=== PATIENT | female | born 1950 | race Caucasian/White ===

== ENCOUNTER 2025-05-11 17:07 | Inpatient (IN) | payer OTHER, MEDICAID ==
[~2025-05-11] VITALS: Ht 165.1 cm; Wt 136.3 kg
[~2025-05-11 17:07] MED LIST: AMLO1TAB22 PO; ASPI325T6 PO; BACL10TA PO; CHOL20007 PO; LANS15CA37 PO; LISI40TA16 PO
--- NOTE | 2025-05-11 17:20 | ED.PDOC ---
HPI (NEURO) HPI Comments 74 y/o F, BIBA, with PMHx of HTN, DM, CHF, COPD, HLD, and CKD presents to the ED for CC of s/p syncopal episode. EMS reports, patient is coming from home where she suffered a syncopal episode while using the restroom. Patient relays, she went to use the restroom when she began to feel weak; then woke up between the toilet and bathtub covered in vomit. Upon arrival to scene, patient was found to be hypotensive with a systolic blood pressure in the 60's. In route, to the ED patient was given 500mL IVF and systolic improved in the 90's. Patient denies oral trauma, urinary incontinence, head injury, or cervical injury. No other symptoms or modifying factors present at this time. Time Seen by MD: 17:15 Primary Care Provider: NASIR Melvin Notes: Nurses Notes, Advertising Sales Assistant Notes, Medications, Allergies Information Source: Patient, Emergency Med Personnel Mode of Arrival: EMS Severity: Moderate Headache Severity: None Timing: Minutes Duration: Since onset Prehospital treatment: IVF Onset: At rest Circumstances: Spontaneous Symptoms: Syncope Before: Normal During: LOC After: Normal Mentation History of: DM Modifying factors: Nothing Associated Signs and Symptoms: Vomiting Past Medical History PAST MEDICAL HISTORY: Asthma, CHF, CKF, COPD, DM, HTN Surgical History: Tubal Ligation Surgical History (Other): CATARACTS COUNTER HELPER History: No Pertinent COUNTER HELPER History Family History Family History: Unknown Social History Smoker: Non-Smoker Alcohol: Denies ETOH Use Drugs: Denies Drug Use Lives In: Home Constitutional: denies: chills, diaphoresis, fatigue, fever, malaise, sweats, weakness, others EENTM: denies: blurred vision, double vision, ear bleeding, ear discharge, ear drainage, ear pain, ear ringing, eye pain, eye redness, hearing loss, mouth pain, mouth swelling, nasal discharge, nose bleeding, nose congestion, nose pain, photophobia, tearing, throat pain, throat swelling, voice changes, others Respiratory: denies: cough, hemoptysis, orthopnea, SOB at rest, shortness of breath, SOB with excertion, stridor, wheezing, others Cardiovascular: denies: chest pain, dizzy spells, diaphoresis, Dyspnea on exertion, edema, irregular heart beat, left arm pain, lightheadedness, palpitations, PND, syncope, others Gastrointestinal: reports: vomiting; denies: abdomen distended, abdominal pain, blood streaked bowels, constipated, diarrhea, dysphagia, difficulty swallowing, hematemesis, melena, nausea, poor appetite, poor fluid intake, rectal bleeding, rectal pain, others Genitourinary: denies: abnormal vagina bleeding, burning, dyspareunia, dysuria, flank pain, frequency, hematuria, incontinence, pain, , vagina discharge, urgency, others Neurological: reports: fainting; denies: dizziness, headache, left sided numbness, left sided weakness, numbness, paresthesia, pre-existing deficit, right sided numbness, right sided weakness, seizure, speech problems, tingling, tremors, weakness, others Musculoskeletal: denies: back pain, gout, joint pain, joint swelling, muscle pain, muscle stiffness, neck pain, others Integumetry: denies: bruises, change in color, change in hair/nails, dryness, laceration, lesions, lumps, rash, wounds, others Allergic/Immunocompromised: denies: Difficulty Healing, Frequent Infections, Hives, Itching, others Hematologic/Lymphatic: denies: anemia, blood clots, easy bleeding, easy bruising, swollen glands, others Endocrine: denies: excessive hunger, excessive sweating, excessive thirst, excessive urination, flushing, intolerance to cold, intolerance to heat, unexplained weight gain, unexplained weight loss, others Psychiatric: denies: anxiety, bipolar disorder, depression, hopeless, panic disorder, schizophrenia, sleepless, suicidal, others All Other Systems: Reviewed and Negative Physical Exam General Appearance: Moderate Distress, Obese HEENT: Normal ENT Inspection, Pharynx Normal, TMs Normal Neck: Full Range of Motion, Non-Tender, Normal, Normal Inspection Respiratory: Chest Non-Tender, Lungs Clear, No Accessory Muscle Use, No Respiratory Distress, Normal Breath Sounds Cardiovascular: No Edema, No JVD, No Murmur, No Gallop, Normal Peripheral Pulses, Regular Rate/Rhythm Breast Exam: Deferred Gastrointestinal: No Organomegaly, Non Tender, No Pulsatile Mass, Normal Bowel Sounds, Soft Genitalia: Deferred Pelvic: Deferred Rectal: Deferred Extremities: No calf tenderness, Normal capillary refill, Normal inspection, Normal range of motion, Non-tender, No pedal edema Musculoskeletal : Apperance: Normal Neurologic: Alert, cage/vault supervisor II-XII nml as Tested, Motor Weakness, Normal Affect, Normal Mood, No Sensory Deficits Cerebellar Function: Normal Reflexes: Normal Skin: Diaphoresis, Pallor, Warm Lymphatic: No Adenopathy EKG EKG : Pulse Rate (adult): 63 [place]: Normal Cardiac Rhythm: NSR Block: LBBB Hypertrophy: None ST: Normal Was a procedure done? Was a procedure done?: No Differential Diagnosis (SZ) Seizure: N/A General Weakness: Dehydration, Electrolyte imbalance, Hypoglycemia, Hypotension X-Ray, Labs, Meds, VS Vital Signs Date Time Temp Pulse Resp B/P (MAP) Pulse Ox O2 Delivery O2 Flow Rate FiO2 05/11/25 20:00 59 18 106/50 (68) 98 05/11/25 18:43 98 Nasal Cannula* 2 28 05/11/25 18:39 61 16 98 Nasal Cannula* 2 28 05/11/25 18:21 62 05/11/25 18:00 63 18 118/48 (71) 98 05/11/25 17:30 63 05/11/25 17:28 98.4 60 18 113/44 (67) 100 98.4 05/11/25 17:09 63 05/11/25 17:07 98.7 58 18 92/50 (64) 95 98.7 Lab Test 05/11/25 18:58 05/11/25 18:05 Range/Units Troponin I High Sensitivity 9 9 </=34 ng/L White Blood Count 12.1 H 4.4-10.8 10^3/uL Red Blood Count 3.96 L 4.0-5.20 10^6/uL Hemoglobin 11.3 L 12.2-16.2 g/dL Hematocrit 34.2 L 36.0-46.0 % Mean Corpuscular Volume 86.5 80.0-100.0 fL Mean Corpuscular Hemoglobin 28.6 28.0-32.0 pg Mean Corpuscular Hemoglobin Concent 33.0 32.0-36.0 g/dL Red Cell Distribution Width 13.7 11.8-14.3 % Platelet Count 268 140-450 10^3/uL Mean Platelet Volume 8.5 6.9-10.8 fL Neutrophils (%) (Auto) 86.1 H 37.0-80.0 % Lymphocytes (%) (Auto) 7.6 L 10.0-50.0 % Monocytes (%) (Auto) 6.1 0.0-12.0 % Eosinophils (%) (Auto) 0.1 0.0-7.0 % Basophils (%) (Auto) 0.1 0.0-2.0 % Neutrophils # (Auto) 10.4 H 1.6-8.6 10 ^3/uL Lymphocytes # (Auto) 0.9 0.4-5.4 10 ^3/uL Monocytes # (Auto) 0.7 0-1.3 10 ^3/uL Eosinophils # (Auto) 0 0-0.8 10 ^3/uL Basophils # (Auto) 0 0-0.2 10 ^3/uL Nucleated Red Blood Cells 0.0 % Sodium Level 137 136-145 mmol/L Potassium Level 4.9 3.5-5.1 mmol/L Chloride Level 102 98-107 mmol/L Carbon Dioxide Level 26 20-31 mmol/L Anion Gap 9 5-15 Blood Urea Nitrogen 29 H 9-23 mg/dL Creatinine 1.70 H 0.550-1.02 mg/dL Glomerular Filtration Rate Calc 31 >90 mL/min BUN/Creatinine Ratio 17.1 10.0-20.0 Serum Glucose 137 H 74-106 mg/dL Calcium Level 9.8 8.7-10.4 mg/dL Magnesium Level 1.6 1.6-2.6 mg/dL HEAD CT: IMPRESSION: 1. No acute intracranial abnormality. The chest x-ray is negative The CBC shows an elevated white blood cell count of 12.1 The CBC is within normal limits otherwise The chemistry panel shows a BUN of 29 a creatinine of 1.7 The troponin level x2 is negative The urine test is pending The patient is being admitted with a diagnosis of autonomic dysfunction The other diagnosis is episode of syncope There is a concern that this patient may have also had some heat exhaustion Images Reviewed?: Images reviewed and evaluated by me Time of 1ST Reevaluation: 17:45 Reevaluation 1ST: Unchanged Patient Education/Counseling: Diagnosis, Treatment, Prognosis Family Education/Counseling: No Family Present Departure 1 Departure Time of Disposition: 20:27 Impression: Primary Impression: Autonomic dysfunction Additional Impression: Episode of syncope Qualified Codes: R55 - Syncope and collapse Disposition: 09 ADMITTED INPATIENT [facility]mit to: [facility] Condition: Fair Critical Care Note Critical Care Time?: Yes (45 min-critical care time only) Stability Stability form required: Yes Unstable for transfer: Telemetry monitoring (Telemetry monitoring required), ED Physician Assesment (Clinical assesment) Heart Score Heart Score: Heart Score Response (Comments) Value History N/A 0 EKG N/A 0 Age N/A 0 Risk Factors N/A 0 Troponin N/A 0 Total 0 I personally scribed for AB PEREZ MD ([email or web address]) on 05/11/25 at 17:20. Electronically submitted by Janee Swartz ([email or web address]). I personally scribed for AB PEREZ MD ([email or web address]) on 05/11/25 at 17:30. Electronically submitted by Janee Swartz ([email or web address]). I personally scribed for AB PEREZ MD ([email or web address]) on 05/11/25 at 18:05. Electronically submitted by Janee Swartz ([email or web address]). AB PEREZ MD May 11, 2025 17:20
--- NOTE | 2025-05-11 18:02 | DVH ---
EXAM: CT HEAD WITHOUT CONTRAST INDICATION: syncope TECHNIQUE: CT of the head without intravenous contrast. Radiation Dose Information: CT Dose: CTDI volume is 61.77 mGy. Dose-length product is 1093.62 mGy*cm The dose indicators for CT are the volume Computed Tomography (CT) Dose Index (CTDIvol) and the Dose Length Product (DLP), and are measured in units of mGy and mGy-cm, respectively. These indicators are not patient dose, but values generated from the CT scanner acquisition factors. The report includes radiation exposure data for exposures received during this examination. COMPARISON: None FINDINGS: There is no evidence of acute intracranial hemorrhage, extra-axial collection, mass effect, midline s hift, herniation or hydrocephalus. The ventricles, sulci and cisterns are age appropriate. The albrecht-white differentiation is intact. Patchy periventricular and subcortical white matter hypoattenuation is nonspecific but may be related to small vessel ischemic disease. The visualized paranasal sinuses and mastoid air cells are clear. The surrounding soft tissues and osseous structures are unremarkable. IMPRESSION: 1. No acute intracranial abnormality.
[2025-05-11 18:17] LABS: Basophils # (auto) 0 10 ^3/uL (0-0.2); Basophils % (auto) 0.1 % (0.0-2.0); Eosinophils # (auto) 0 10 ^3/uL (0-0.8); Eosinophils % (auto) 0.1 % (0.0-7.0); Hematocrit 34.2 % (36.0-46.0); Hemoglobin 11.3 g/dL (12.2-16.2); Lymphocytes # (auto) 0.9 10 ^3/uL (0.4-5.4); Lymphocytes % (auto) 7.6 % (10.0-50.0); Mean Corpuscular Hemoglobin 28.6 pg (28.0-32.0); Mean Corpuscular Volume 86.5 fL (80.0-100.0); Monocytes # (auto) 0.7 10 ^3/uL (0-1.3); Monocytes % (auto) 6.1 % (0.0-12.0); Neutrophils # (auto) 10.4 10 ^3/uL (1.6-8.6); Neutrophils % (auto) 86.1 % (37.0-80.0); Platelet Count (auto) 268 10^3/uL (140-450); Red Blood Cells 3.96 10^6/uL (4.0-5.20); Red Cell Distribution Width 13.7 % (11.8-14.3); White Blood Cell 12.1 10^3/uL (4.4-10.8)
[2025-05-11 18:24] LABS: Chloride 102 mmol/L (98-107); Potassium 4.9 mmol/L (3.5-5.1); Sodium 137 mmol/L (136-145)
[2025-05-11 18:25] LABS: Anion Gap 9 (5-15); Calcium 9.8 mg/dL (8.7-10.4); Carbon Dioxide 26 mmol/L (20-31)
[2025-05-11 18:30] LABS: BUN/Creatinine Ratio 17.1 (10.0-20.0)
[2025-05-11 18:32] LABS: Blood Urea Nitrogen 29 mg/dL (9-23); Glucose 137 mg/dL (74-106); Magnesium 1.6 mg/dL (1.6-2.6)
[2025-05-11 18:39] VITALS: PULSE 61; RESP 16; O2SAT 98
--- NOTE | 2025-05-11 18:46 | DVH ---
CHEST RADIOGRAPH Indication: syncope Technique: Single frontal view of the chest was obtained Comparison: None FINDINGS: Lines and Tubes: None Lungs: No focal consolidation. Pleura: No effusion. No pneumothorax. Cardiomediastinal contours: Unremarkable Bones: No acute osseous abnormality. IMPRESSION: 1. No acute cardiopulmonary disease.
[2025-05-11 21:20] VITALS: PULSE 57; RESP 16; O2SAT 99
[2025-05-11] MEDS ORDERED: ONDANSETRON HCL 4 MG/2 ML VIAL IV PRN (22:15)
[2025-05-11] MEDS ORDERED: NITROGLYCERIN 0.4 MG SL TAB SL PRN (22:15)
[2025-05-11] MEDS ORDERED: MORPHINE SULFATE INJ 2 MG/ml SYRG IV PRN (22:15)
[2025-05-11] MEDS ORDERED: DOCUSATE SOD 100 MG CAP PO PRN (22:15)
[2025-05-11] MEDS: SODIUM CHLORIDE 0.9% 500 ML IV SCH (22:24)
[2025-05-11 22:38] VITALS: BP 106/50; PULSE 59; RESP 18; O2SAT 98
[2025-05-11 23:06] VITALS: O2SAT 98
[2025-05-12] VITALS (12 sets, daily range): BP systolic 106–134; BP diastolic 42–61; PULSE 59–88; RESP 15–21; TEMP 96.5–98.4; O2SAT 96–100
--- NOTE | 2025-05-12 00:02 | DVH ---
CT OF THE CERVICAL SPINE WITHOUT CONTRAST HISTORY: fall with neck pain COMPARISON: None TECHNIQUE: Helical images through the cervical spine were obtained without contrast. Sagittal and cor onal reformats were obtained. One or more of the following radiation dose reduction techniques were u sed for this examination: automated exposure control, adjustment of the mA and/or kV according to pat ient size, use of iterative reconstruction technique. FINDINGS: Straightening of the cervical curvature. No grossly displaced fractures or subluxations are evident. The bony spinal canal is patent. Prevertebral soft tissues appear within normal limits. Varying degrees of Mild multilevel disc space narrowing and marginal osteophyte formation. IMPRESSION: No grossly displaced fractures or subluxations identified. Straightening of the cervical curvature may be in part related to patient positioning and/or muscular spasm. Degenerative changes.
[2025-05-12] MEDS: ACETAMINOPHEN 325 MG TAB PO PRN (00:29)
[2025-05-12 01:05] LABS: Urine Bacteria FEW /hpf (None Seen); Urine Blood Negative /uL (Negative); Urine Clarity Clear (Clear); Urine Color Light-Yellow (Yellow); Urine Protein, UAD Negative (Negative); Urine Specific Gravity 1.012 (1.001-1.035); Urine Squamous Epithelial Cell FEW /hpf (<5); Urine Urobilinogen Normal (Negative); Urine WBC < 1 /HPF (0-5); Urine pH 5.5 (5.0-9.0)
--- NOTE | 2025-05-12 01:48 | DVHHP2 ---
IWONA SPENCER RESISTANCE MACHINE WELDER SETTER 05/12/25 0148: History of Present Illness Reason for Visit: Syncope with hypotension History of Present Illness 74-year-old female with past medical history of pulmonary hypertension, COPD presents with complaints of a syncopal episode. Patient states she went to use the restroom and must have passed out. Does not recall the event. states she was found between the toilet and her shower covered in vomit. EMS reported that when they encounter the patient, her systolic blood pressure was in the 60s and was given 500 mL bolus of normal saline. During the emergency department evaluation, W12.1, H&H 11.3/34.2, PLT 268. Na 137, K4.9, BUN 29, creatinine 1.7, mg 1.6. Troponin negative 08/07. ECG NSR 63 with LBBB. At this time patient is endorsing mild neck pain and headache. denies fevers, chills, shortness of breath, chest pain, palpitations, leg edema. Endorses her spiritual advisor is Dr. Hernandez last seen June 2024. Is being seen by game preserve manager Dr. Williamson. Cardiovascular: CHF, HTN, pulmonary hypertension Pulmonary: COPD, Other (Pulmonary hypertension) Endocrine: Diabetes Smoke: No ALCOHOL: none Drugs: None Lives: with Family Review of Systems Constitutional: No: Fever, Chills, Sweats, Weakness, Malaise, Other Eyes: No: Pain, Vision change, Conjunctivae inflammation, Eyelid inflammation, Other, Redness ENT: No: Ear pain, Ear discharge, Nose pain, Nose discharge, Nose congestion, Mouth pain, Mouth swelling, Throat pain, Throat swelling, Other Respiratory: No: Cough, Dry, Shortness of breath, SOB with excertion, Wheezing, Hemoptysis, Pleuritic Pain, Sputum, Wheezing, Other Cardiovascular: Lt Headedness, Other (Syncope) Gastrointestinal: No: Nausea, Vomiting, Abdominal Pain, Diarrhea, Constipation, Melena, Hematochezia, Other Musculoskeletal: No: other, neck pain, shoulder pain, arm pain, back pain, hand pain, leg pain, foot pain Skin: No: Rash, Lesions, Jaundice, Bruising, Other Neurological: No: Weakness, Numbness, Incoordination, Change in speech, Confusion, Seizures, Other Allergies: Coded Allergies: Penicillins (Verified Allergy, Unknown, 03/03/16) Medications Current Medications Medications Dose Ordered Sig/Paula Route Start Time Stop Time Status Last Admin Dose Admin Sodium Chloride 500 ml @ 50 mls/hr Q10H IV 05/11/25 22:15 05/12/25 08:14 05/11/25 22:24 50 MLS/HR Docusate Sodium 100 mg BIDPRN PRN PO 05/11/25 22:15 Acetaminophen 650 mg Q6HP PRN PO 05/11/25 22:15 05/12/25 00:29 650 MG Acetaminophen/ Hydrocodone Bitart 1 tab Q6HP PRN PO 05/11/25 22:15 Ondansetron HCl 4 mg Q4HP PRN IV 05/11/25 22:15 Enoxaparin Sodium 30 mg DAILY SC 05/12/25 10:00 Nitroglycerin 0.4 mg Q5MINP PRN SL 05/11/25 22:15 Morphine Sulfate 2 mg Q30M PRN IV 05/11/25 22:15 Duloxetine HCl 40 mg DAILY PO 05/12/25 10:00 Albuterol 2.5 mg Q4HPRN PRN NEB 05/11/25 22:15 Ipratropium [place] 0.5 mg Q4HP PRN NEB 05/11/25 22:15 Exam Vital Signs Vital Signs Date Time Temp Pulse Resp B/P (MAP) Pulse Ox O2 Delivery O2 Flow Rate FiO2 05/11/25 23:06 98 Nasal Cannula 2.0 05/11/25 23:06 28 05/11/25 22:38 59 18 106/50 05/11/25 17:28 98.4 98.4 General Appearance: Alert, Oriented X3, Cooperative, mild distress HEENT: Atraumatic, PERRLA, EOMI Respiratory: Clear to auscultation, Normal air movement Cardiovascular: Regular rate, Normal S1, Normal S2 Abdominal: Normal bowel sounds, Soft, No tenderness Extremities: No cyanosis, No edema Skin: No rashes, No breakdown Neuro: Normal speech, Strength at 5/5 X4 ext Psych/Mental Status: Mental status NL, Mood NL Labs/Xrays Labs Test 05/12/25 00:00 05/11/25 18:58 05/11/25 18:05 Range/Units Urine Color Light-yellow Yellow Urine Clarity Clear Clear Urine pH 5.5 5.0-9.0 Urine Specific [place] 1.012 1.001-1.035 Urine Protein Negative Negative Urine Ketones Negative Negative Urine Blood Negative Negative /uL Urine Nitrite Negative Negative Urine Bilirubin Negative Negative Urine Urobilinogen Normal Negative mg/dL Urine Leukocyte Esterase Negative Negative /uL Urine RBC 2 0 - 4 /hpf Urine Microscopic WBC < 1 0-5 /HPF Urine Squamous Epithelial Cells Few <5 /hpf Urine Bacteria Few H None Seen /hpf Urine Glucose Normal Normal mg/dL Troponin I High Sensitivity 9 </=34 ng/L White Blood Count 12.1 H 4.4-10.8 10^3/uL Red Blood Count 3.96 L 4.0-5.20 10^6/uL Hemoglobin 11.3 L 12.2-16.2 g/dL Hematocrit 34.2 L 36.0-46.0 % Mean Corpuscular Volume 86.5 80.0-100.0 fL Mean Corpuscular Hemoglobin 28.6 28.0-32.0 pg Mean Corpuscular Hemoglobin Concent 33.0 32.0-36.0 g/dL Red Cell Distribution Width 13.7 11.8-14.3 % Platelet Count 268 140-450 10^3/uL Mean Platelet Volume 8.5 6.9-10.8 fL Neutrophils (%) (Auto) 86.1 H 37.0-80.0 % Lymphocytes (%) (Auto) 7.6 L 10.0-50.0 % Monocytes (%) (Auto) 6.1 0.0-12.0 % Eosinophils (%) (Auto) 0.1 0.0-7.0 % Basophils (%) (Auto) 0.1 0.0-2.0 % Neutrophils # (Auto) 10.4 H 1.6-8.6 10 ^3/uL Lymphocytes # (Auto) 0.9 0.4-5.4 10 ^3/uL Monocytes # (Auto) 0.7 0-1.3 10 ^3/uL Eosinophils # (Auto) 0 0-0.8 10 ^3/uL Basophils # (Auto) 0 0-0.2 10 ^3/uL Nucleated Red Blood Cells 0.0 % Sodium Level 137 136-145 mmol/L Potassium Level 4.9 3.5-5.1 mmol/L Chloride Level 102 98-107 mmol/L Carbon Dioxide Level 26 20-31 mmol/L Anion Gap 9 5-15 Blood Urea Nitrogen 29 H 9-23 mg/dL Creatinine 1.70 H 0.550-1.02 mg/dL Glomerular Filtration Rate Calc 31 >90 mL/min BUN/Creatinine Ratio 17.1 10.0-20.0 Serum Glucose 137 H 74-106 mg/dL Calcium Level 9.8 8.7-10.4 mg/dL Magnesium Level 1.6 1.6-2.6 mg/dL Assessment/Plan Assessment/Plan Syncope and collapse Acute kidney injury Hx hypertension currently hypotensive Hx pulmonary hypertension Hx COPD not in exacerbation Plan Admit telemetry Cardiology consult. Echocardiogram. Will continue antihypertensives after blood pressure improves. Bronchodilators. As needed supplemental oxygen to maintain oxygen saturation greater than 93%. Incentive spirometry. Monitor BNP. Trend BUN/ creatinine. Correct Electrolytes as needed IVF (NS@50ml/hr x 500ml) GI ppx protonix / DVT ppx lovenox Plan discussed with: Patient My Orders Orders - IWONA SPENCER NP Procedure Category Date Status Time Cervical Without CT 05/11/25 Resulted Contrast 21:50 Admit ADMIT 05/11/25 Transmitted 22:04 Code Status CODE 05/11/25 Transmitted 22:04 Vital Signs AMELIA 05/11/25 In Process 22:04 Review Orders With AMELIA 05/11/25 In Process Adm. 22:04 Encourage Activity As AMELIA 05/11/25 In Process Tolerate 22:04 Consistent DIET 05/12/25 Transmitted Carb(Ccho)Diabetes Breakfast Sodium Chloride 0.9% PHA 05/11/25 In Process 22:15 Oxygen By Face Mask RT 05/11/25 Transmitted 22:04 Docusate Sodium PHA 05/11/25 In Process Capsule (Colace 22:15 Acetaminophen Tablet PHA 05/11/25 In Process (Tylenol Tablet) 22:15 Notify Of Changes AMELIA 05/11/25 In Process From Base 22:04 Advance Directive AMELIA 05/11/25 In Process 22:04 Echo 2d Mode Cardiac US 05/11/25 Logged DOP 22:04 Basic Metabolic Panel LAB 05/12/25 Logged 05:00 Basic Metabolic Panel LAB 05/13/25 Verified 05:00 Basic Metabolic Panel LAB 05/14/25 Verified 05:00 Complete Blood Count LAB 05/12/25 Logged 05:00 Complete Blood Count LAB 05/13/25 Verified 05:00 Complete Blood Count LAB 05/14/25 Verified 05:00 Patient Condition ORDERS 05/11/25 Transmitted 22:04 Allergies AMELIA 05/11/25 In Process 22:04 Hydrocodone-Acet PHA 05/11/25 In Process 5/325mg Tab ([place] 22:15 Ondansetron Hcl PHA 05/11/25 In Process (Zofran) 22:15 Enoxaparin Sodium PHA 05/12/25 In Process (Lovenox) 10:00 Sequential AMELIA 05/11/25 In Process Compression Device Nitroglycerin PHA 05/11/25 In Process Sublingual (Ntrostat 22:15 Morphine Sulfate PHA 05/11/25 In Process Injection 22:15 Stat Ekg For Chest AMELIA 05/11/25 In Process Pain 22:04 Notify Of Changes AMELIA 05/11/25 In Process From Base 22:04 Cable Cutter And Swager For AMELIA 05/11/25 In Process 24 Hours 22:04 Emergency Dysrhythmia AMELIA 05/11/25 In Process Protocol 22:04 Rhythm Strips Once AMELIA 05/11/25 In Process Every Shift 22:04 Oxygen By Nasal RT 05/11/25 Transmitted Cannula 22:04 * Cardiology Consult CONS 05/11/25 Transmitted 22:04 Pt Request For Service PT 05/11/25 Logged 22:04 Duloxetine Hcl PHA 05/12/25 In Process Capsule (Cymbalta 10:00 Melatonin (Melatonin) PHA 05/12/25 In Process 22:00 Albuterol Medneb PHA 05/11/25 In Process (Ventolin Medneb) 22:15 Ipratropium Medneb PHA 05/11/25 In Process (Atrovent Medneb) 22:15 Orthostatic Vital ORDERS 05/11/25 Transmitted Signs 22:16 Orthostatic Vital ORDERS 05/12/25 Transmitted Signs 22:16 Orthostatic Vital ORDERS 05/13/25 Transmitted Signs 22:16 Orthostatic Vital ORDERS 05/14/25 Transmitted Signs 22:16 Date of Service: May 12, 2025 Billing Provider: MARLEE MANUEL MD Common Visit Codes: NOT BILLABLE MARLEE MANUEL MD 05/12/25 1226: Review of Systems Allergies: Coded Allergies: Penicillins (Verified Allergy, Unknown, 03/03/16) Additional Comments Additional Comments Additional Comments Patient's chart is reviewed and discussed with the nurse practitioner. I agree with the nurse practitioner's evaluation, documentation, assessment and care plan as outlined. Discussed with the nurse regarding care plan. IWONA SPENCER NP May 12, 2025 01:48 MARLEE MANUEL MD May 12, 2025 12:26
[2025-05-12 06:02] LABS: Basophils # (auto) 0 10 ^3/uL (0-0.2); Basophils % (auto) 0.2 % (0.0-2.0); Eosinophils # (auto) 0.1 10 ^3/uL (0-0.8); Eosinophils % (auto) 0.7 % (0.0-7.0); Hematocrit 30.9 % (36.0-46.0); Hemoglobin 10.3 g/dL (12.2-16.2); Lymphocytes # (auto) 1.9 10 ^3/uL (0.4-5.4); Lymphocytes % (auto) 19.4 % (10.0-50.0); Mean Corpuscular Hemoglobin 28.8 pg (28.0-32.0); Mean Corpuscular Hgb Conc. 33.2 g/dL (32.0-36.0); Mean Corpuscular Volume 86.7 fL (80.0-100.0); Monocytes # (auto) 0.8 10 ^3/uL (0-1.3); Monocytes % (auto) 7.9 % (0.0-12.0); Neutrophils % (auto) 71.8 % (37.0-80.0); Platelet Count (auto) 246 10^3/uL (140-450); Red Blood Cells 3.56 10^6/uL (4.0-5.20); Red Cell Distribution Width 13.8 % (11.8-14.3); White Blood Cell 9.8 10^3/uL (4.4-10.8)
[2025-05-12 06:12] LABS: Chloride 102 mmol/L (98-107); Potassium 4.3 mmol/L (3.5-5.1); Sodium 140 mmol/L (136-145)
[2025-05-12 06:13] LABS: Anion Gap 8 (5-15); Calcium 9.7 mg/dL (8.7-10.4); Carbon Dioxide 30 mmol/L (20-31)
[2025-05-12 06:18] LABS: Glucose 96 mg/dL (74-106)
[2025-05-12 06:30] LABS: Blood Urea Nitrogen 29 mg/dL (9-23)
[2025-05-12] MEDS: IPRATROPIUM BROM 0.5 MG/2.5ML INH SOL NEB PRN (08:17)
[2025-05-12] MEDS: ALBUTEROL SULF 2.5 MG/0.5ML(0.5%) NEB SOLN NEB PRN (08:17)
[2025-05-12] MEDS: ENOXAPARIN SOD 30 MG/0.3 ML SYRINGE SC SCH (09:08)
[2025-05-12] MEDS: DULoxetine HCL 30 MG CAP PO SCH (09:09)
--- NOTE | 2025-05-12 13:07 | DVH ---
Indication: syncope Technique: Real-time ultrasound images of the neck vessels with albrecht-scale, color and wave Doppler we re obtained. Comparison: None Findings: The following peak systolic velocities were recorded in cm/sec: Right internal carotid: 95 Right common carotid: 88 Right external carotid: 123 Right internal/common carotid ratio: 1.1 Left internal carotid: 114 Left common carotid: 89 Left external carotid: 93 Left internal/common carotid ratio: 1.3 Right vertebral artery: Patent with normal antegrade direction of flow. Left vertebral artery: Patent with normal antegrade direction of flow. Impression: No hemodynamically significant stenosis by velocity criteria.
[2025-05-12] MEDS: SODIUM CHLORIDE 0.9% 1,000 ML IV SCH (13:20)
--- NOTE | 2025-05-12 14:09 | DVH ---
INDICATION: MANUEL/CKD TECHNIQUE: Multiple real-time sonographic images of the kidneys and bladder were obtained. COMPARISON: None FINDINGS: The right kidney measures 9.5 cm in length. The right renal echogenicity, contour and cortical thickn ess are within normal limits. No hydronephrosis or large masses/calculi are seen. The left kidney measures 8.6 cm in length. The left renal echogenicity, contour, and cortical thickne ss are within normal limits. No hydronephrosis or large masses/calculi are seen. No large intraluminal masses are seen in the bladder. IMPRESSION: 1. Unremarkable examination.
--- NOTE | 2025-05-12 18:55 | DVHINCON2 ---
Date of service: May 12, 2025 Referring Physician Jamie Reason for Consultation Syncope History of Present Illness This is a 74 year old female with a PMH of of HTN, DM, CHF, COPD, HLD, and CKD brought in by ambulance with complaint of syncopal episode. Patient suffered a syncopal episode while using the restroom. Patient states she went to use the restroom when she began to feel weak, then woke up between the toilet and bathtub covered in vomit. Upon arrival to scene, patient was found to be hypotensive with a systolic blood pressure in the 60's. EMS administered 500mL IVF and systolic improved in the 90's. EKG id NSR at 63. Chest x-ray showed NAD. CT head: no acute intracranial abnormality. CT C-Spine shows no grossly displaced fractures or subluxations identified. Straightening of the cervical curvature may be in part related to patient positioning and/or muscular spasm. Degenerative changes. Troponin is negative. WBC 12, BUN 29, [employer] Sports [employer] 1.70. Patient was admitted to the hospital. I am asked to consult on this patient. Family History: FH: breast cancer G8 SISTER G8 SISTER FH: leukemia G8 MOTHER FH: ovarian cancer G8 SISTER FH: prostate cancer G8 BROTHER Allergies: Coded Allergies: Penicillins (Verified Allergy, Unknown, 03/03/16) Home Meds Reported Medications Lansoprazole (Prevacid) 15 Mg Cap, 15 MG PO, CAP 11/26/18 Baclofen (Baclofen) 10 Mg Tab, 5 MG PO Q8HP PRN for PAIN SCALE 1 THRU 6 for 30 Days, MG 11/26/18 Aspirin (Aspirin) 325 Mg Tab, 81 MG PO DAILY for 30 Days, MG 11/26/18 Cholecalciferol (VITAMIN D3) 2,000 Unit Tab, 5000 UNIT PO DAILY, TAB 11/26/18 Amlodipine Besylate (Amlodipine Besylate) 5 Mg Tab, 5 MG PO DAILY for 30 Days, MG 11/26/18 Lisinopril (Lisinopril) 40 Mg Tab, 1 TAB PO BID, #30 TAB 5 Refills 11/26/18 Current Medications Current Medications Medications (Trade) Dose Ordered Sig/Paula Route PRN Reason Start Time Stop Time Status Last Admin Sodium Chloride 500 ml @ 50 mls/hr Q10H IV 05/11/25 22:15 05/12/25 08:14 DC 05/11/25 22:24 Docusate Sodium (Colace Capsule) 100 mg BIDPRN PRN PO FOR CONSTIPATION 05/11/25 22:15 Acetaminophen (Tylenol Tablet) 650 mg Q6HP PRN PO PAIN SCALE 1-3 OR TEMP>100.4 05/11/25 22:15 05/12/25 06:41 Acetaminophen/ Hydrocodone Bitart ([place] 5/325MG Tab) 1 tab Q6HP PRN PO MODERATE PAIN (4-6 PAIN SCALE) 05/11/25 22:15 Ondansetron HCl (Zofran) 4 mg Q4HP PRN IV NAUSEA / VOMITING 05/11/25 22:15 Enoxaparin Sodium (Lovenox) 30 mg DAILY SC 05/12/25 10:00 05/12/25 09:08 Nitroglycerin (Ntrostat Sublingual) 0.4 mg Q5MINP PRN SL FOR CHEST PAIN 05/11/25 22:15 Morphine Sulfate 2 mg Q30M PRN IV FOR CHEST PAIN 05/11/25 22:15 Duloxetine HCl (Cymbalta Capsule) 40 mg DAILY PO 05/12/25 10:00 05/12/25 09:09 Albuterol (Ventolin Medneb) 2.5 mg Q4HPRN PRN NEB SHORTNESS OF BREATH 05/11/25 22:15 05/12/25 08:17 Ipratropium [place] (Atrovent Medneb) 0.5 mg Q4HP PRN NEB SHORTNESS OF BREATH 05/11/25 22:15 05/12/25 08:17 Sodium Chloride 1,000 ml @ 60 mls/hr [id number] IV 05/12/25 12:30 05/12/25 13:20 Review of Systems Constitutional: denies: chills, diaphoresis, fatigue, fever, malaise, sweats, weakness, others EENTM: denies: blurred vision, double vision, ear bleeding, ear discharge, ear drainage, ear pain, ear ringing, eye pain, eye redness, hearing loss, mouth pain, mouth swelling, nasal discharge, nose bleeding, nose congestion, nose pain, photophobia, tearing, throat pain, throat swelling, voice changes, others Respiratory: denies: cough, hemoptysis, orthopnea, SOB at rest, shortness of breath, SOB with excertion, stridor, wheezing, others Cardiovascular: denies: chest pain, dizzy spells, diaphoresis, Dyspnea on exertion, edema, irregular heart beat, left arm pain, lightheadedness, palpitations, PND, syncope, others Gastrointestinal: reports: vomiting; denies: abdomen distended, abdominal pain, blood streaked bowels, constipated, diarrhea, dysphagia, difficulty swallowing, hematemesis, melena, nausea, poor appetite, poor fluid intake, rectal bleeding, rectal pain, others Genitourinary: denies: abnormal vagina bleeding, burning, dyspareunia, dysuria, flank pain, frequency, hematuria, incontinence, pain, , vagina discharge, urgency, others Neurological: reports: fainting; denies: dizziness, headache, left sided numbness, left sided weakness, numbness, paresthesia, pre-existing deficit, right sided numbness, right sided weakness, seizure, speech problems, tingling, tremors, weakness, others Musculoskeletal: denies: back pain, gout, joint pain, joint swelling, muscle pain, muscle stiffness, neck pain, others Integumetry: denies: bruises, change in color, change in hair/nails, dryness, laceration, lesions, lumps, rash, wounds, others Allergic/Immunocompromised: denies: Difficulty Healing, Frequent Infections, Hives, Itching, others Hematologic/Lymphatic: denies: anemia, blood clots, easy bleeding, easy bruising, swollen glands, others Endocrine: denies: excessive hunger, excessive sweating, excessive thirst, excessive urination, flushing, intolerance to cold, intolerance to heat, unexp lained weight gain, unexplained weight loss, others Psychiatric: denies: anxiety, bipolar disorder, depression, hopeless, panic disorder, schizophrenia, sleepless, suicidal, others All Other Systems: Reviewed and Negative Vital Signs Vital Signs Date Time Temp Pulse Resp B/P (MAP) Pulse Ox O2 Delivery O2 Flow Rate FiO2 05/12/25 12:40 96.6 67 21 125/61 (82) 97 96.6 05/12/25 09:37 Room Air 0.0 05/12/25 09:36 21 Physical Exam GENERAL: Alert and oriented x 3. No acute distress. Obese. EYES: PERRL, EOMI. Anicteric. HENT: Moist mucous membranes. LUNGS: Clear to auscultation bilaterally. CARDIOVASCULAR: Regular rate and rhythm. ABDOMEN: Soft, nontender and nondistended. EXTREMITIES: No edema. NEUROLOGIC: No focal neurological deficits. SKIN: Warm, dry. Labs/Diagnostic Data Labs Test 05/12/25 05:00 05/12/25 00:00 05/11/25 18:58 05/11/25 18:05 Range/Units White Blood Count 9.8 4.4-10.8 10^3/uL Red Blood Count 3.56 L 4.0-5.20 10^6/uL Hemoglobin 10.3 L 12.2-16.2 g/dL Hematocrit 30.9 L 36.0-46.0 % Mean Corpuscular Volume 86.7 80.0-100.0 fL Mean Corpuscular Hemoglobin 28.8 28.0-32.0 pg Mean Corpuscular Hemoglobin Concent 33.2 32.0-36.0 g/dL Red Cell Distribution Width 13.8 11.8-14.3 % Platelet Count 246 140-450 10^3/uL Mean Platelet Volume 8.9 6.9-10.8 fL Neutrophils (%) (Auto) 71.8 37.0-80.0 % Lymphocytes (%) (Auto) 19.4 10.0-50.0 % Monocytes (%) (Auto) 7.9 0.0-12.0 % Eosinophils (%) (Auto) 0.7 0.0-7.0 % Basophils (%) (Auto) 0.2 0.0-2.0 % Neutrophils # (Auto) 7.0 1.6-8.6 10 ^3/uL Lymphocytes # (Auto) 1.9 0.4-5.4 10 ^3/uL Monocytes # (Auto) 0.8 0-1.3 10 ^3/uL Eosinophils # (Auto) 0.1 0-0.8 10 ^3/uL Basophils # (Auto) 0 0-0.2 10 ^3/uL Nucleated Red Blood Cells 0.0 % Sodium Level 140 136-145 mmol/L Potassium Level 4.3 3.5-5.1 mmol/L Chloride Level 102 98-107 mmol/L Carbon Dioxide Level 30 20-31 mmol/L Anion Gap 8 5-15 Blood Urea Nitrogen 29 H 9-23 mg/dL Creatinine 1.81 H 0.550-1.02 mg/dL Glomerular Filtration Rate Calc 29 >90 mL/min BUN/Creatinine Ratio 16.0 10.0-20.0 Serum Glucose 96 74-106 mg/dL Calcium Level 9.7 8.7-10.4 mg/dL Thyroid Stimulating Hormone (TSH) 1.59 0.55-4.78 uIU/mL Urine Color Light-yellow Yellow Urine Clarity Clear Clear Urine pH 5.5 5.0-9.0 Urine Specific [place] 1.012 1.001-1.035 Urine Protein Negative Negative Urine Ketones Negative Negative Urine Blood Negative Negative /uL Urine Nitrite Negative Negative Urine Bilirubin Negative Negative Urine Urobilinogen Normal Negative mg/dL Urine Leukocyte Esterase Negative Negative /uL Urine RBC 2 0 - 4 /hpf Urine Microscopic WBC < 1 0-5 /HPF Urine Squamous Epithelial Cells Few <5 /hpf Urine Bacteria Few H None Seen /hpf Urine Glucose Normal Normal mg/dL Troponin I High Sensitivity 9 </=34 ng/L Magnesium Level 1.6 1.6-2.6 mg/dL Assessment Syncope and collapse. Acute kidney injury. History of hypertension currently hypotensive. History of pulmonary hypertension. History of COPD. Plan/Recommendation I agree with your ongoing assessment and care of plan. Telemetry reviewed. Echocardiogram. Morphine and [place] for pain management. DVT prophylactics. Nitro SL. Additional plan as per the hospital course. A total of 45 minutes was spent reviewing the patient record, examining the patient, making a diagnostic and therapeutic plan, discussing this plan with medical personnel, following up on diagnostic studies and following the patient for clinical stability excluding any and all procedures. At least 50% of this time was spent in direct, [id number] contact. Plan discussed with: Patient MOMO SAUNDERS MD May 12, 2025 13:32
[2025-05-12] MEDS: MELATONIN 5 MG TAB PO ONE (21:27)
[2025-05-13] VITALS (9 sets, daily range): BP systolic 107–131; BP diastolic 32–69; PULSE 60–78; RESP 14–20; TEMP 36.1; O2SAT 95–99
[2025-05-13 06:01] LABS: Basophils # (auto) 0 10 ^3/uL (0-0.2); Basophils % (auto) 0.3 % (0.0-2.0); Eosinophils # (auto) 0.1 10 ^3/uL (0-0.8); Eosinophils % (auto) 1.9 % (0.0-7.0); Hematocrit 30.6 % (36.0-46.0); Hemoglobin 10.3 g/dL (12.2-16.2); Lymphocytes % (auto) 25.8 % (10.0-50.0); Mean Corpuscular Hgb Conc. 33.7 g/dL (32.0-36.0); Mean Corpuscular Volume 86.2 fL (80.0-100.0); Monocytes # (auto) 0.7 10 ^3/uL (0-1.3); Monocytes % (auto) 9.1 % (0.0-12.0); Neutrophils # (auto) 4.8 10 ^3/uL (1.6-8.6); Neutrophils % (auto) 62.9 % (37.0-80.0); Platelet Count (auto) 245 10^3/uL (140-450); Red Blood Cells 3.55 10^6/uL (4.0-5.20); Red Cell Distribution Width 13.9 % (11.8-14.3); White Blood Cell 7.7 10^3/uL (4.4-10.8)
[2025-05-13 06:07] LABS: Anion Gap 7 (5-15); Carbon Dioxide 30 mmol/L (20-31); Chloride 101 mmol/L (98-107); Potassium 4.7 mmol/L (3.5-5.1); Sodium 138 mmol/L (136-145)
[2025-05-13 06:08] LABS: Calcium 9.1 mg/dL (8.7-10.4)
[2025-05-13 06:13] LABS: BUN/Creatinine Ratio 17.3 (10.0-20.0); Blood Urea Nitrogen 27 mg/dL (9-23); Glucose 112 mg/dL (74-106)
--- NOTE | 2025-05-13 13:00 | DVHDS2 ---
Discharge Summary Date of Admission May 11, 2025 at 22:04 Date of Discharge: May 13, 2025 Labs/Diagnostic Data: Laboratory Results Test 05/13/25 05:20 05/12/25 05:00 05/12/25 00:00 05/11/25 18:58 White Blood Count 7.7 10^3/uL (4.4-10.8) Red Blood Count 3.55 10^6/uL (4.0-5.20) Hemoglobin 10.3 g/dL (12.2-16.2) Hematocrit 30.6 % (36.0-46.0) Mean Corpuscular Volume 86.2 fL (80.0-100.0) Mean Corpuscular Hemoglobin 29.0 pg (28.0-32.0) Mean Corpuscular Hemoglobin Concent 33.7 g/dL (32.0-36.0) Red Cell Distribution Width 13.9 % (11.8-14.3) Platelet Count 245 10^3/uL (140-450) Mean Platelet Volume 8.7 fL (6.9-10.8) Neutrophils (%) (Auto) 62.9 % (37.0-80.0) Lymphocytes (%) (Auto) 25.8 % (10.0-50.0) Monocytes (%) (Auto) 9.1 % (0.0-12.0) Eosinophils (%) (Auto) 1.9 % (0.0-7.0) Basophils (%) (Auto) 0.3 % (0.0-2.0) Neutrophils # (Auto) 4.8 10 ^3/uL (1.6-8.6) Lymphocytes # (Auto) 2.0 10 ^3/uL (0.4-5.4) Monocytes # (Auto) 0.7 10 ^3/uL (0-1.3) Eosinophils # (Auto) 0.1 10 ^3/uL (0-0.8) Basophils # (Auto) 0 10 ^3/uL (0-0.2) Nucleated Red Blood Cells 0.0 % Sodium Level 138 mmol/L (136-145) Potassium Level 4.7 mmol/L (3.5-5.1) Chloride Level 101 mmol/L (98-107) Carbon Dioxide Level 30 mmol/L (20-31) Anion Gap 7 (5-15) Blood Urea Nitrogen 27 mg/dL (9-23) Creatinine 1.56 mg/dL (0.550-1.02) Glomerular Filtration Rate Calc 34 mL/min (>90) BUN/Creatinine Ratio 17.3 (10.0-20.0) Serum Glucose 112 mg/dL (74-106) Calcium Level 9.1 mg/dL (8.7-10.4) Thyroid Stimulating Hormone (TSH) 1.59 uIU/mL (0.55-4.78) Urine Color Light-yellow (Yellow) Urine Clarity Clear (Clear) Urine pH 5.5 (5.0-9.0) Urine Specific [place] 1.012 (1.001-1.035) Urine Protein Negative (Negative) Urine Ketones Negative (Negative) Urine Blood Negative /uL (Negative) Urine Nitrite Negative (Negative) Urine Bilirubin Negative (Negative) Urine Urobilinogen Normal mg/dL (Negative) Urine Leukocyte Esterase Negative /uL (Negative) Urine RBC 2 /hpf (0 - 4) Urine Microscopic WBC < 1 /HPF (0-5) Urine Squamous Epithelial Cells Few /hpf (<5) Urine Bacteria Few /hpf (None Seen) Urine Glucose Normal mg/dL (Normal) Troponin I High Sensitivity 9 ng/L (</=34) Test 05/11/25 18:05 Magnesium Level 1.6 mg/dL (1.6-2.6) Other Laboratory Tests 05/13/25 05:20 Brief Hx & Hospital Course: 74-year-old female with past medical history of pulmonary hypertension, COPD presents with complaints of a syncopal episode. Patient states she went to use the restroom and must have passed out. Does not recall the event. states she was found between the toilet and her shower covered in vomit. EMS reported that when they encounter the patient, her systolic blood pressure was in the 60s and was given 500 mL bolus of normal saline. During the emergency department evaluation, W12.1, H&H 11.3/34.2, PLT 268. Na 137, K4.9, BUN 29, creatinine 1.7, mg 1.6. Troponin negative 08/07. ECG NSR 63 with LBBB. At this time patient is endorsing mild neck pain and headache. denies fevers, chills, shortness of breath, chest pain, palpitations, leg edema. Endorses her accounts payable lead is Dr. Hernandez last seen June 2024. Is being seen by sheet manager Dr. Williamson. She is admitted and underwent a cardiac evaluation. Her head CT is normal. Renal ultrasound is normal. Patient is seen. Stopped and received gentle hydration and kidney function has mildly improved. Patient is advised to cut down her baclofen felt maybe causing some of her symptoms. While in the hospital her telemetry rhythm did not show any cardiac arrhythmia. Patient otherwise had rest of workup which is also unremarkable. She is clinically feeling better. Having had necessary workup and evaluations and feeling better it is felt she could be safely discharged home with close outpatient follow up with the primary care physician and consultants as appropriate. I have talked with the patient regarding her hospital diagnosis, treatment she received, discharge medications, discharge instructions and follow-up plan of care. She has verbalized understanding of these and agree with the care plan as outlined. Condition at Discharge: Stable Final Diagnosis/Problems List Dizziness, MANUEL with CKD II, morbid obesity with a BMI 50 Discharge Disposition: Home Discharge Instruct/Medications Diet: Consistent carbohydrate, Cardiac 2g Na,low cholest Activity: No Restrictions, As Tolerated Follow Up/Referral: Primary care physician next week and referral to neurologist for further evaluation of your symptoms Medications: Stopped taking amlodipine. Take other medications as per discharge med reconciliation list. Continued Medications: Aspirin (Aspirin) 325 Mg Tab 81 MG PO DAILY for 30 Days, MG Baclofen (Baclofen) 10 Mg Tab 5 MG PO Q8HP PRN for PAIN SCALE 1 THRU 6 for 30 Days, MG Cholecalciferol (Vitamin D3) 2,000 Unit Tab 5000 UNIT PO DAILY, TAB Lansoprazole (Prevacid) 15 Mg Cap 15 MG PO, CAP Lisinopril (Lisinopril) 40 Mg Tab 1 TAB PO BID, #30 TAB 5 Refills Discontinued Medications: Amlodipine Besylate (Amlodipine Besylate) 5 Mg Tab 5 MG PO DAILY for 30 Days, MG Discharge Statement: "Patient was advised to return to the ER or call 911 if any headaches, dizziness, shortness of breath, chest pain, abdominal pain, bleeding, fevers, or worsening of medical condition. Patient was counseled about treatment plan, medications, possible side effects, patientverbalized understanding. All questions were answered to the best of my ability. This discharge took greater then 30 minutes in planning, reviewing documentation, counseling the patient, and discussing with other team members." ASSESSMENT ASSESSMENT Assessment Dizziness, MANUEL with CKD II, morbid obesity with a BMI 50 MARLEE MANUEL MD May 13, 2025 13:00
[2025-05-13] MEDS: HYDROcodone-ACET 5/325MG TAB PO PRN (13:29)
--- NOTE | 2025-05-13 17:34 | DVHPN2 ---
Progress Note - Dictate Date Seen: May 13, 2025 Medical Necessity Reason Pt with a Central, PICC or Fol: No Subjective Patient was seen and evaluated in follow up. No overnight events. Patient is complaining of generalized pain. 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 Telemetry reviewed. vital signs Vital Sign Date Time Temp Pulse Resp B/P (MAP) Pulse Ox O2 Delivery O2 Flow Rate FiO2 05/13/25 13:36 36.1 05/13/25 10:00 Nasal Cannula 2.0 05/13/25 10:00 28 05/13/25 09:39 78 20 99 05/13/25 09:00 128/69 (88) Total Intake and Output 05/12/25 05/12/25 05/13/25 15:00 23:00 07:00 Intake Total 600 ml 200 ml Balance 600 ml 200 ml medications Current Medications Medications Dose Ordered Sig/Paula Route Start Time Stop Time Status Last Admin Dose Admin Docusate Sodium 100 mg BIDPRN PRN PO 05/11/25 22:15 Acetaminophen 650 mg Q6HP PRN PO 05/11/25 22:15 05/12/25 06:41 650 MG Acetaminophen/ Hydrocodone Bitart 1 tab Q6HP PRN PO 05/11/25 22:15 05/13/25 13:29 1 TAB Ondansetron HCl 4 mg Q4HP PRN IV 05/11/25 22:15 Enoxaparin Sodium 30 mg DAILY SC 05/12/25 10:00 05/13/25 08:57 30 MG Nitroglycerin 0.4 mg Q5MINP PRN SL 05/11/25 22:15 Morphine Sulfate 2 mg Q30M PRN IV 05/11/25 22:15 Duloxetine HCl 40 mg DAILY PO 05/12/25 10:00 05/13/25 08:56 40 MG Albuterol 2.5 mg Q4HPRN PRN NEB 05/11/25 22:15 05/13/25 09:31 2.5 MG Ipratropium [place] 0.5 mg Q4HP PRN NEB 05/11/25 22:15 05/13/25 09:31 0.5 MG Sodium Chloride 1,000 ml @ 60 mls/hr [id number] IV 05/12/25 12:30 05/12/25 13:20 60 MLS/HR objective GENERAL: Alert and oriented x 3. No acute distress. Obese. EYES: PERRL, EOMI. Anicteric. HENT: Moist mucous membranes. LUNGS: Clear to auscultation bilaterally. CARDIOVASCULAR: Regular rate and rhythm. ABDOMEN: Soft, nontender and nondistended. EXTREMITIES: No edema. NEUROLOGIC: No focal neurological deficits. SKIN: Warm, dry. laboratory and microbiology Laboratory Tests 05/13/25 05:20 Test 05/13/25 05:20 Range/Units Serum Glucose 112 H 74-106 mg/dL Problem List Syncope and collapse. Acute kidney injury. History of hypertension currently hypotensive. History of pulmonary hypertension. History of COPD. Assessment/Plan Continued all current supportive medical care. Echocardiogram. Morphine and [place] for pain management. DVT prophylactics. Nitro SL. Additional plan as per the hospital course. Plan discussed with: Patient MOMO SAUNDERS MD May 13, 2025 13:56
--- NOTE | 2025-05-13 23:37 | DVHSR ---
APPROVED REPORT EXAM: Two-dimensional and M-mode echocardiogram with Doppler and color Doppler. Blood Pressure: 113/43 mmHg INDICATION Syncope RISK FACTORS Obesity: Height: 5'5", Weight: 300 DIMENSIONS LVDd4.3 (3.8-5.7cm)LA (2D)4.3 (1.9-4.0cm)Aortic Root3.5 (2.0-3.7cm) LVDs3.0 (2.5-4.0cm)LA (MM) (1.9-4.0cm)Aortic Cusp Exc1.2 (1.5-2.0cm) EF (%) 60.0 (55-70%)Rt. Atrium (1.9-4.0cm)Asc. Aorta cm IVSd1.5 (0.7-1.1cm)RV (D) (1.8-2.4cm) PWd1.5 (0.7-1.1cm) Mitral Valve MitralMitral Stenosis E wave1.03m/sMV Mean GR.4mmHg A wave1.06m/sMV Peak GR.7mmHg E/A ratio1.02D MVAcm2 DECEL [id number] 1/2 [place] Aortic Valve Aortic ValveAortic Stenosis V11.60m/Zach Mean GR.19mmHg V22.91m/Zach Peak GR.34mmHg LVOT Diameter1.9 (1.8-2.4cm)Doppler AVA1.56cm2 Pulmonic Valve V21.72m/s Other Information Technically limited study due to body habitus. Conclusion 1. MODERATE DEGREE LVH AND MODERATE DEGREE LV DIASTOLIC DYSFUNCTION 2. LV EF IS 65% 3. 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 HEAVILY CALCIFIED AORTIC LEAFLETS WITH DECREASED EXCURSION PEAK GRADIENT ACROSS AORTIC VALVE IS 33 MM OF HG AND MEAN GRADIENT IS 19 MM OF HG 5. AORTIC VALVE AREA IS 1.56 CM SQUARE IT IS MODERATE DEGREE AORTIC STENOSIS 6.NORMAL RV FUNCTION 7. NO EFFUSION
--- NOTE | 2025-05-14 12:24 | ECG ---
[facility] Test Date: 2025-05-11 Test Time: 17:09:42 Pat Name: BENIGNO REAGAN Department: ED Room: 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
== END 2025-05-13 19:17 | disposition home or self-care (01) | DRG 312 ==
LOC: EDUNIT# 17:07 → EDBD 17:07 → ER 17:07 → OVERFLOW 22:04 → TELE-WESTW 23:46
PROVIDERS: ADMIT Nurse Practitioner Family; ATTEND Nurse Practitioner Family
DX: R55 Syncope and collapse (principal); N17.9 Acute kidney failure, unspecified; Z68.43 Body mass index [BMI] 50.0-59.9, adult; I13.0 Hypertensive heart and chronic kidney disease with heart failure and stage 1 through stage 4 chronic kidney disease, or unspecified chronic kidney disease; R42 Dizziness and giddiness; T42.8X5A Adverse effect of antiparkinsonism drugs and other central muscle-tone depressants, initial encounter; G90.89 Other disorders of autonomic nervous system; E11.22 Type 2 diabetes mellitus with diabetic chronic kidney disease; I50.9 Heart failure, unspecified; N18.2 Chronic kidney disease, stage 2 (mild); E66.01 Morbid (severe) obesity due to excess calories; E78.5 Hyperlipidemia, unspecified; I27.20 Pulmonary hypertension, unspecified; J44.9 Chronic obstructive pulmonary disease, unspecified; I44.7 Left bundle-branch block, unspecified; Z88.0 Allergy status to penicillin; Z80.3 Family history of malignant neoplasm of breast; Z80.6 Family history of leukemia; Z80.41 Family history of malignant neoplasm of ovary; Z79.82 Long term (current) use of aspirin; Z79.899 Other long term (current) drug therapy
CPT/HCPCS: 36415; 70450; 71045; 72125; 76775; 80048; 81001; 83735; 84439; 84443; 84484; 85025; 93005; 93306; 93886; 94640; 96360; 99291; G0378